=== PATIENT | male | born 1970 ===

== ENCOUNTER 2024-02-17 08:12 | Emergency (ER) | payer BC ==
[2024-02-17] MEDS: guaiFENesin 100 MG/5 ML Soln 5 ML UD Cup PO ONE (08:59)
[2024-02-17] MEDS: Acetaminophen 500 MG Tab PO ONE (09:00)
[2024-02-17] MEDS: guaiFENesin/Dextromethorphan 100-10 MG/5 ML Soln 5 ML Cup PO ONE (09:01)
[2024-02-17] MEDS: guaiFENesin 100 MG/5 ML Soln 5 ML UD Cup ONE (10:13)
== END 2024-02-17 10:53 | disposition home or self-care (01) ==
LOC: DL.ED 08:12
DX: R05.1 Acute cough (principal)
CPT/HCPCS: 71046; 87428; 99283; A9270